=== PATIENT | male | born 1995 | race African-American/Black ===

== ENCOUNTER 2022-08-24 13:20 | Emergency (ER) | payer SELFPAY ==
[2022-08-24] MEDS ORDERED: predniSONE 20 MG TAB ONE (16:02)
[2022-08-24] MEDS ORDERED: Diazepam 5 MG TAB ONE (16:03)
[2022-08-24 16:43] LABS: Bilirubin Neg (Negative); Blood, Urine Negative (Negative); Clarity Slightly Cloudy (Clear); Glucose, Urine (Dipstick) Normal (Negative); Ketone, Urine Negative (Negative); Leukocyte Negative (Negative); Nitrite Negative (Negative); Protein, Urine (Dipstick) Negative (Neg-Trace); Urobilinogen Normal mg/dL (Less than 2)
[2022-08-24] MEDS ORDERED: Ibuprofen 200 MG TAB ONE (18:13)
[2022-08-24] MEDS ORDERED: HYDROcodone/Acetaminophen 5/325 mg Tablet ONE (18:14)
== END 2022-08-24 19:14 | disposition home or self-care (01) ==
LOC: CSHERS 13:20
DX: M54.50 Low back pain, unspecified (principal); J01.90 Acute sinusitis, unspecified; F17.210 Nicotine dependence, cigarettes, uncomplicated
CPT/HCPCS: 71045; 81003; 93005; J7512